=== PATIENT | male | born 1955 | race Native Hawaiian/Other Pacific Islander ===

== ENCOUNTER 2022-05-12 16:08 | Emergency (ER) | payer OTHER ==
[~2022-05-12] VITALS: Ht 170.2 cm; Wt 91.2 kg
[2022-05-12 16:08] VITALS: TEMP 99.9
[2022-05-12 16:51] LABS: PLATELET COUNT 249 K/uL (142-355)
[2022-05-12 16:59] LABS: POTASSIUM 3.9 mmol/L (3.6-5.2)
[2022-05-12 18:50] VITALS: BP 139/78
== END 2022-05-12 18:50 | disposition home or self-care (01) ==
LOC: ED 16:08
PROVIDERS: Emergency Medicine
DX: R51.9 Headache, unspecified (principal); E86.0 Dehydration; I10 Essential (primary) hypertension
CPT/HCPCS: 80053; 82550; 84484; 85027; 93005; 99283